=== PATIENT | male | born 1995 | race Caucasian/White ===

== ENCOUNTER 2018-11-18 19:10 | Emergency (ER) | payer OTHER ==
[2018-11-18] MEDS ORDERED: Diphtheria,Pertussis(Acell),Tetanus Vaccine 0.5 ML Syringe IM ONE (19:23)
[2018-11-18] MEDS ORDERED: Lidocaine 1% PF 2 ML SDV INJECT ONE (19:23)
[2018-11-18] MEDS ORDERED: Bacitracin Oint 1 GM U/D Packet TOP ONE (19:23)
--- NOTE | 2018-11-18 19:57 | EDM.PDOC ---
ED HPI GENERAL MEDICAL PROBLEM - General Chief Complaint: Laceration Stated Complaint: PT CUT RT INDEX FINGER Time Seen by Provider: 11/18/18 19:17 Source of Information: Reports: Patient History Limitations: Reports: No Limitations - History of Present Illness INITIAL COMMENTS - FREE TEXT/NARRATIVE: HISTORY AND PHYSICAL: History of present illness: Patient is a 22-year-old male who presents to the emergency room with complaints of a laceration to his right distal index finger. He states he was using a camera stand when his finger got crushed while the stand was being pulled apart, resulting in the laceration. He states that he heard a "pop" and is concerned he may have a finger fracture. Unsure of last tetanus up-to-date. Denies any other extremity involvement. Denies any systemic complaints. Review of systems: As per history of present illness and below otherwise all systems reviewed and negative. Past medical history: As per history of present illness and as reviewed below otherwise noncontributory. Surgical history: As per history of present illness and as reviewed below otherwise noncontributory. Social history: See social history for further information Family history: As per history of present illness and as reviewed below otherwise noncontributory. Physical exam: General: Well-developed and well-nourished 22-year-old male. Alert and oriented. Nontoxic appearing and in no acute distress. HEENT: Atraumatic, normocephalic, pupils equal and reactive bilaterally, negative for conjunctival pallor or scleral icterus, mucous membranes moist, trachea midline. No drooling or trismus noted. No meningeal signs. No hot potato voice noted. Lungs: Clear to auscultation, breath sounds equal bilaterally, chest nontender. Heart: S1S2, regular rate and rhythm without overt murmur Abdomen: Soft, nondistended, nontender. Skin: 0.7 centimeter laceration to the pad of the right distal second digit. This does not involve the nailbed. Intact, warm, dry. No lesions or rashes noted. Extremities: See skin for details, moves all extremities per self without difficulty or deficits. Neurovascular unremarkable. Neuro: Awake, alert, oriented. Cranial nerves II through XII unremarkable. Cerebellum unremarkable. Motor and sensory unremarkable throughout. Exam nonfocal. Notes: Area was thoroughly cleansed with chlorhexidine and wound wash. 1% lidocaine was used to anesthetize the area. #2 interrupted sutures placed. Nonstick dressing applied. X-ray shows no acute findings. Supportive care measures were reviewed and discussed. Voices understanding and is agreeable to plan of care. Denies any further questions or concerns at this time. Diagnostics: Finger x-ray Therapeutics: Lidocaine, T, bacitracin dressing Prescription: None Impression: Laceration Plan: 1. Keep the area clean and dry. Continue to monitor for signs of infection. Sutures to be removed in 7-10 days. 2. Tylenol and/or ibuprofen as needed for pain management. 3. Please follow-up with your primary care provider in the next 1-2 days. Return to the ED as needed and as discussed. Definitive disposition and diagnosis as appropriate pending reevaluation and review of above. right index finger Pain Score (Numeric/FACES): 7 - Related Data Allergies Allergy/AdvReac Type Severity Reaction Status Date / Time No Known Allergies Allergy Verified 11/18/18 19:21 Home Meds: Home Meds . [No Known Home Meds] 11/18/18 [History] Past Medical History - Past Surgical History HEENT Surgical History: Reports: Oral Surgery Social & Family History - Family History Family Medical History: Noncontributory - Tobacco Use Smoking Status *Q: Never Smoker - Recreational Drug Use Recreational Drug Use: No ED ROS GENERAL - Review of Systems Review Of Systems: ROS reveals no pertinent complaints other than HPI. ED EXAM, SKIN/RASH Exam: See Below (See dictation) ED SKIN PROCEDURES - Laceration/Wound Repair right index finger Appearance: Subcutaneous, Linear Distal NVT: Neuro & Vascular Intact Anesthetic Type: Local Local Anesthesia - Lidocaine (Xylocaine): 1% Plain Local Anesthetic Volume: 2cc Skin Prep: Chlorhexidine (Hibiciens), Saline, Sterile Drape Saline Irrigation (cc's): 25 Closed with: Sutures Lac/Wound length In cm: 0.7 Suture Size: 4-0 # of Sutures: 2 Suture Type: Nylon, Interrupted, Simple Drain Placement: No Sterile Dressing Applied: Provider Tetanus Status Addressed: Yes Complications: No Course - Vital Signs Last Recorded V/S: Last Vital Signs Temp 97 F 11/18/18 19:10 Pulse 98 11/18/18 19:10 Resp 16 11/18/18 19:10 BP 135/86 08/27/19 19:10 Pulse Ox 99 11/18/18 19:10 - Orders/Labs/Meds Orders: Active Orders 24 hr Category Date Time Status Vaccines to be Administered [RC] PER UNIT ROUTINE Care 11/18/18 19:23 Active Fingers Second Digit Lt F1 [CR] Stat Exams 11/18/18 19:23 Taken Meds: Medications Discontinued Medications Generic Name Dose Route Start Last Admin Trade Name Zaina PRN Reason Stop Dose Admin Bacitracin 1 dose 11/18/18 19:23 11/18/18 19:34 Bacitracin Oint 1 Gm TOP 11/18/18 19:24 1 dose ONETIME ONE Administration Diphtheria/Tetanus/Acell Pertussis 0.5 ml 11/18/18 19:23 11/18/18 19:31 Adacel IM 11/18/18 19:24 0.5 ml .ONCE ONE Administration Lidocaine HCl 2 ml 11/18/18 19:23 11/18/18 19:31 Xylocaine-Mpf 1% INJECT 11/18/18 19:24 2 ml ONETIME ONE Administration Departure - Departure Time of Disposition: 19:55 Disposition: Home, Self-Care 01 Clinical Impression: Laceration - Discharge Information Instructions: Laceration Care, Adult, [id number] Forms: ED Department Discharge Additional Instructions: The following information is given to patients seen in the emergency department who are being discharged to home. This information is to outline your options for follow-up care. We provide all patients seen in our emergency department with a follow-up referral. The need for follow-up, as well as the timing and circumstances, are variable depending upon the specifics of your emergency department visit. If you don't have a primary care physician on staff, we will provide you with a referral. We always advise you to contact your personal physician following an emergency department visit to inform them of the circumstance of the visit and for follow-up with them and/or the need for any referrals to a consulting specialist. The emergency department will also refer you to a specialist when appropriate. This referral assures that you have the opportunity for follow-up care with a specialist. All of these measure are taken in an effort to provide you with optimal care, which includes your follow-up. Under all circumstances we always encourage you to contact your private physician who remains a resource for coordinating your care. When calling for follow-up care, please make the office aware that this follow-up is from your recent emergency room visit. If for any reason you are refused follow-up, please contact the [facility] Emergency Department at and asked to speak to the emergency department charge nurse. [facility] [address] [place] [address] [facility] [address] [place] [id number] 1. Keep the area clean and dry. Continue to monitor for signs of infection. Sutures to be removed in 7-10 days. 2. Tylenol and/or ibuprofen as needed for pain management. 3. Please follow-up with your primary care provider in the next 1-2 days. Return to the ED as needed and as discussed. - My Orders Last 24 Hours: My Active Orders 11/18/18 19:23 Vaccines to be Administered [RC] PER UNIT ROUTINE Fingers Second Digit Lt F1 [CR] Stat - Assessment/Plan Last 24 Hours: My Active Orders 11/18/18 19:23 Vaccines to be Administered [RC] PER UNIT ROUTINE Fingers Second Digit Lt F1 [CR] Stat
--- NOTE | 2018-11-18 20:00 | CR ---
Indication: Injury and pain Technique: Right 2nd finger 3 views Comparison: None Findings: Bones: Alignment is normal. No fractures or bone lesions. Joint spaces: Unremarkable. Soft tissues: Unremarkable. Impression: No sign of acute injury. Dictated by Jaret Gorman MD @ Nov 18 2018 7:57PM Signed by Dr. Jaret Gorman @ Nov 18 2018 7:59PM
== END 2018-11-18 20:15 | disposition home or self-care (01) ==
LOC: MW.ED 19:10
DX: S61.210A Laceration without foreign body of right index finger without damage to nail, initial encounter (principal); Z23 Encounter for immunization; W23.1XXA Caught, crushed, jammed, or pinched between stationary objects, initial encounter
CPT/HCPCS: 12001; 73140; 90471; 90715; 99283; J2001

== ENCOUNTER 2018-11-26 19:11 | Emergency (ER) | payer OTHER | END 2018-11-26 19:28 | disposition home or self-care (01) | LOC: MW.ED 19:11 | DX: Z53.21 Procedure and treatment not carried out due to patient leaving prior to being seen by health care provider (principal) ==